=== PATIENT | female | born 1960 | race African-American/Black ===

== ENCOUNTER 2022-03-08 12:23 | Emergency (ER) | payer BC, OTHER ==
[2022-03-08 12:40] VITALS: PULSE 72; RESP 16; BMI 27.4
[2022-03-08] MEDS ORDERED: SODIUM CHLORIDE 0.9% 500 ML INFUS.BAG IV ONE (12:46)
[2022-03-08] MEDS ORDERED: MECLIZINE HCL 25 MG TABLET (FP) PO ONE (12:47)
[2022-03-08] MEDS ORDERED: MECLIZINE HCL 25 MG TABLET (FP) ONE (12:49)
[2022-03-08 13:56] LABS: INR 1.03 (0.83-1.09); PROTHROMBIN TIME (PATIENT) 11.9 SEC (9.7-13.0)
[2022-03-08 13:57] LABS: HEMATOCRIT 39.4 % (32.4-45.2); HEMOGLOBIN 13.3 G/dL (10.7-15.3); MCH 29.1 pg (25.7-33.7); MCHC 33.7 g/dl (32.0-36.0); MEAN CELL VOLUME 86.5 fl (80-96); MEAN PLT VOLUME 8.3 fl (7.5-11.1); PLATELET COUNT 277.3 10^3/uL (134-434); RBC 4.56 10^6/uL (3.60-5.2); RDW 14.7 % (11.6-15.6); WHITE BLOOD COUNT 7.4 10^3/uL (4.0-10.8)
[2022-03-08 13:58] LABS: ACTIVATED PTT 37.6 SECONDS (25.2-36.5)
[2022-03-08 14:02] LABS: PLATELET ESTIMATE ADEQUATE
[2022-03-08 14:03] LABS: ALBUMIN 4.3 g/dl (3.4-5.0); BILIRUBIN,TOTAL 0.4 mg/dl (0.2-1); CALCIUM 9.2 mg/dl (8.5-10); CREATININE 0.7 mg/dl (0.55-1.3); TOT PROT 8.3 g/dl (6.4-8.2)
[2022-03-08 17:06] VITALS: BP 136/85; TEMP 98.7
== END 2022-03-08 18:38 | disposition home or self-care (01) ==
LOC: FER 12:23
DX: U07.1 COVID-19 (principal); R42 Dizziness and giddiness
CPT/HCPCS: 0241U-QW; 36415; 70450-TC; 70551-TC; 80053; 85025; 85610; 85730; 93005; 99285-25